=== PATIENT | female | born 1950 | race Caucasian/White ===

== ENCOUNTER 2023-02-26 14:37 | Emergency (ER) | payer OTHER, BC ==
[2023-02-26 14:52] VITALS: BP 157/76; PULSE 74; RESP 16; TEMP 98.4; BMI 26.6
[2023-02-26 15:31] LABS: HEMATOCRIT 33.3 % (32.4-45.2); HEMOGLOBIN 10.2 G/dL (10.7-15.3); MCHC 30.5 g/dl (32.0-36.0); MEAN CELL VOLUME 64.5 fl (80-96); MEAN PLT VOLUME 8.9 fl (7.5-11.1); RBC 5.16 10^6/uL (3.60-5.2); RDW 18.4 % (11.6-15.6); WHITE BLOOD COUNT 8.9 10^3/uL (4.0-10.8)
[2023-02-26 15:47] LABS: MCH 19.7 pg (25.7-33.7)
[2023-02-26 15:48] LABS: PLATELET ESTIMATE ADEQUATE
[2023-02-26 15:51] LABS: EPITHELIAL CELLS 0-5 /hpf
[2023-02-26 15:52] LABS: ALBUMIN 4.4 g/dl (3.4-5.0); BILIRUBIN,TOTAL 1.2 mg/dl (0.2-1); CALCIUM 9.3 mg/dl (8.5-10.1); CREATININE 0.7 mg/dl (0.6-1.3); POTASSIUM 3.8 mmol/L (3.5-5.1); TOT PROT 6.7 g/dl (6.4-8.2)
== END 2023-02-26 17:37 | disposition home or self-care (01) ==
LOC: FER 14:37
DX: R10.31 Right lower quadrant pain (principal); K57.32 Diverticulitis of large intestine without perforation or abscess without bleeding
CPT/HCPCS: 36415; 74177-TC; 80053; 81003; 81015; 84484; 85027; 87086; 99285-25; Q9967